=== PATIENT | female | born 1950 | race Caucasian/White ===

== ENCOUNTER 2019-10-22 23:38 | Emergency (ER) | payer MEDICARE, OTHER ==
[~2019-10-22] VITALS: Ht 149.9 cm; Wt 74.4 kg
[2019-10-23] MEDS ORDERED: COZAAR50 MG PO (00:06)
[2019-10-23] MEDS ORDERED: TRIAMTERENE-HC1 EAC3 PO (00:07)
== END 2019-10-23 01:40 | disposition home or self-care (01) ==
LOC: ED 23:38
DX: S00.03XA Contusion of scalp, initial encounter (principal); I10 Essential (primary) hypertension; Z88.5 Allergy status to narcotic agent; Z79.899 Other long term (current) drug therapy; W22.8XXA Striking against or struck by other objects, initial encounter
CPT/HCPCS: 70450; 99283-25